=== PATIENT | male | born 1975 | race Caucasian/White ===

== ENCOUNTER 2024-08-31 17:34 | Emergency (ER) | payer MEDICAID, SELFPAY ==
[2024-08-31 17:39] VITALS: BP 174/130; PULSE 110; TEMP 36.7; O2SAT 98; BMI 33.4
--- NOTE | 2024-08-31 17:48 | CTR_ITS ---
PROCEDURE INFORMATION: Exam: CT Head Without Contrast Exam date and time: 08/31/2024 6:10 PM Age: 48 years old Clinical indication: Pain; Headache TECHNIQUE: Imaging protocol: Computed tomography of the head without contrast. Radiation optimization: All CT scans at this facility use at least one of these dose optimization techniques: automated exposure control; mA and/or kV adjustment per patient size (includes targeted exams where dose is matched to clinical indication); or iterative reconstruction. COMPARISON: No relevant prior studies available. RADIATION DOSE METRICS: Total DLP (mGy-cm): 842.78 FINDINGS: Brain: No evidence of intra-axial or extra-axial hemorrhage. No mass effect or midline shift. Burks-white differentiation is maintained. Basilar cisterns are patent. There appears to be bilateral cerebellar tonsillar ectopia, partially visualized, raising the question of Chiari 1 malformation. Cerebral ventricles: No hydrocephalus. Paranasal sinuses: The visualized paranasal sinuses are well aerated. Mastoid air cells: The visualized mastoids and middle ears are clear. Bones: Calvarium is intact. No evidence of acute fracture. Soft tissues: No gross soft tissue abnormality. CT/CT head wo con* [id number] IMPRESSION: 1. No acute intracranial abnormality. 2. Findings raising the question of Chiari 1 malformation. Consider follow-up outpatient MRI of the brain.
[2024-08-31 18:04] LABS: Basophils % 0.2 %; Eosinophils # 0.2 10^3/uL (0.0-0.8); Eosinophils % 1.8 %; Hematocrit 47.1 % (37-53); Lymphocytes # 2.7 10^3/uL (0.8-4.8); Lymphocytes % 28.3 %; Mean Corpuscular HGB Conc 33.3 g/dL (30-55); Mean Corpuscular Hemoglobin 28.6 pg (27-33); Mean Corpuscular Volume 85.9 fl (82-101); Mean Platelet Volume 8.9 fL (7.4-10.4); Monocytes # 0.8 10^3/uL (0.2-0.9); Monocytes % 8.2 %; Neutrophils # 5.89 10^3/uL (1.8-7.7); Neutrophils % 61.2 %; Nucleated Red Blood Cells % 0 %; Platelet Count 421 10^3/cmm (157-399); Red Blood Count 5.48 10^6/uL (3.85-5.65); Red Cell Distribution Width 13.4 % (12.1-15.1); White Blood Count 9.63 10^3/uL (3.29-11.43)
--- NOTE | 2024-08-31 18:13 | ED_ITS ---
HPI - Headache 2 General: Chief Complaint: Headache Stated Complaint: headache, stroke like symptoms last night. Time Seen by Provider: 08/31/24 17:45 History of Present Illness: 48-year-old man who presents emergency r oom at the advice of his primary care provider. He says yesterday he had some numbness and tingling on his left side. This went away fairly quickly. He continues to have a headache today. He had spoken with his primary and they felt like he should go be evaluated at the emergency room. Currently has no neurologic symptoms. He still has some mild frontal headache. He had no focal motor deficits. No confusion. No speech difficulty. Related Data Allergies Allergy/AdvReac Type Severity Reaction Status Date / Time No Known Allergies Allergy Verified 08/31/24 17:44 Review of Systems 2 Narrative: Constitutional symptoms: Negative except as documented in HPI. Skin symptoms: Negative except as documented in HPI. Eye symptoms: Negative except as documented in HPI. ENMT symptoms: Negative except as documented in HPI. Respiratory symptoms: Negative except as documented in HPI. Cardiovascular symptoms: Negative except as documented in HPI. Gastrointestinal symptoms: Negative except as documented in HPI. Genitourinary symptoms: Negative except as documented in HPI. Musculoskeletal symptoms: Negative except as documented in HPI. Neurologic symptoms: Negative except as documented in HPI. Psychiatric symptoms: Negative except as documented in HPI. Endocrine symptoms: Negative except as documented in HPI. Physical Exam 2 Narrative: EXAM NARRATIVE: General: Alert, no acute distress. Skin: Warm, dry. Head: Normocephalic, atraumatic. Neck: Supple, trachea midline. Eye: Extraocular movements are intact. Ears, nose, mouth and throat: mucosa moist. Cardiovascular: Regular, Normal peripheral perfusion. Respiratory: Lungs are clear to auscultation, respirations are non-labored, breath sounds are equal, Symmetrical chest wall expansion. Gastrointestinal: Soft, Nontender, Non distended Musculoskeletal: Normal ROM, no deformity. Neurological: Alert and oriented, No focal neurological deficit observed. Psychiatric: Cooperative, appropriate mood & affect. Course 2 Vital Signs: Vital signs: Vital Signs Temperature 98.1 F 08/31/24 17:39 Pulse Rate 92 08/31/24 18:31 Respiratory Rate 16 08/31/24 18:31 Blood Pressure 145/111 08/31/24 18:31 Pulse Oximetry 94 08/31/24 18:31 Oxygen Delivery Me thod Room Air 08/31/24 18:31 MDM - Headache Medical Decision Making Medical decision making: Differential diagnosis for patient with focal neurologic deficit(s) includes but not limited to and based on the above HPI, review of systems and physical exam: ischemic stroke, hemorrhagic stroke and embolic stroke secondary to atrial fibrillation), TIA, Last's palsey, metabolic encephalopathy with previous stroke. Orders placed to evaluate differential diagnosis based on the above differential, HPI and physical exam Lab Review: Laboratory results were reviewed and interpreted by myself the emergency room physician. Lab work is unremarkable CT head: No acute intracranial process. no intracranial hemorrhage, no evidence of infarct. no evidence of acute fracture.This was reviewed and interpreted by myself the ER physician. Radiologist does raise the thought of a possible Chiari I malformation. This can be further worked up as an outpatient I reviewed the patient's medical record. Reexamination: Patient remained stable. No increased work of breathing. No altered mental status. No focal motor deficits. Assessment and plan: Headache Paresthesia - Discharged home - Discussed plan with patient. Answered any questions. - Evaluation and treatment of this problem were appropriate in the emergency setting. Lab Data 08/31/24 17:54 08/31/24 17:[address] 08/31/24 17:48 IMPRESSION: 1. No acute intracranial abnormality. 2. Findings raising the question of Chiari 1 malformation. Consider follow-up outpatient MRI of the brain. Laboratory Results WBC 9.63 10^3/uL (3.29-11.43) 08/31/24 17:54 RBC 5.48 10^6/uL (3.85-5.65) 08/31/24 17:54 Hgb 15.70 g/dL (11.27-16.99) 08/31/24 17:54 Hct 47.1 % (37-53) 08/31/24 17:54 MCV 85.9 fl (82-101) 08/31/24 17:54 MCH 28.6 pg (27-33) 08/31/24 17:54 MCHC 33.3 g/dL (30-55) 08/31/24 17:54 RDW 13.4 % (12.1-15.1) 08/31/24 17:54 Plt Count 421 10^3/cmm (157-399) H 08/31/24 17:54 MPV 8.9 fL (7.4-10.4) 08/31/24 17:54 Neut % (Auto) 61.2 % 08/31/24 17:54 Lymph % (Auto) 28.3 % 08/31/24 17:54 [place] % (Auto) 8.2 % 08/31/24 17:54 Eos % (Auto) 1.8 % 08/31/24 17:54 Baso % (Auto) 0.2 % 08/31/24 17:54 Neut # (Auto) 5.89 10^3/uL (1.8-7.7) 08/31/24 17:54 Lymph # (Auto) 2.7 10^3/uL (0.8-4.8) 08/31/24 17:54 [place] # (Auto) 0.8 10^3/uL (0.2-0.9) 08/31/24 17:54 Eos # (Auto) 0.2 10^3/uL (0.0-0.8) 08/31/24 17:54 Baso # (Auto) 0.0 10^3/uL (0.0-0.1) 08/31/24 17:54 Nucleated RBC % (auto) 0 % 08/31/24 17:54 Nucleated RBCs # 0.0 /100WBC 08/31/24 17:54 Sodium 131 mmol/L (136-145) L 08/31/24 17:54 Potassium 4.6 mmol/L (3.5-5.1) 08/31/24 17:54 Chloride 92 mmol/L (98-107) L 08/31/24 17:54 Carbon Dioxide 28 mmol/L (22-29) 08/31/24 17:54 Anion Gap 15.6 (5-19) 08/31/24 17:54 BUN 11 mg/dL (6-20) 08/31/24 17:54 Creatinine 0.9 mg/dL (0.7-1.2) 08/31/24 17:54 GFR Calculation 89.3 mL/min (90-130) L 08/31/24 17:54 Glucose 96 mg/dL (65-115) 08/31/24 17:54 Calculated Osmolality 271 mOsm/kg (285-295) L 08/31/24 17:54 Calcium 10.1 mg/dL (8.5-10.5) 08/31/24 17:54 Total Bilirubin 0.4 mg/dL (0.15-1.2) 08/31/24 17:54 AST 21 U/L (0-40) 08/31/24 17:54 ALT 25 U/L (0-41) 08/31/24 17:54 Alkaline Phosphatase 111 U/L (40-130) 08/31/24 17:54 Total Protein 7.7 g/dL (6.6-8.7) 08/31/24 17:54 Albumin 4.7 g/dL (3.5-5.2) 08/31/24 17:54 Globulin 3.0 g/dL (1.3-4.6) 08/31/24 17:54 All radiology interpretation(s) finalized by discharge Discharge Plan Discharge Patient Disposition: Home Clinical Impression: Headache Condition: Stable Discharge Orders: Discharge ED (Routine); Ordered 08/31/24 Ordered By: Bella Wilson Discharge Diet: Usual diet Discharge Activity: Increase activity as tolerated Patient Instructions: Opioid Safety, Pain Management Activity Restrictions/Additional Instructions: Findings on CT suggest that you should have an outpatient MRI. This does not need to be emergent. But within the next few weeks. Thank you for choosing [facility] for your healthcare needs today. Please realize this is an emergency room and that we are providing you with a medical screening exam and this may not be complete and all inclusive of all the testing and or work up that you may need to determine your ailment or severity of your illness. You have been screened and evaluated and felt safe for discharge. Health conditions do change or evolve sometimes and as such it is important that you follow up with your Primary Doctor to be re checked, 3-5 days is a general good time frame for follow up. You are always welcome to return to the ED for re assessment if your symptoms are worsening or you have new concerns Coding Level of Care Code ED [employer] for Jyothi David
[2024-08-31 18:25] LABS: Alanine Aminotransferase 25 U/L (0-41); Albumin Level 4.7 g/dL (3.5-5.2); Alkaline Phosphatase 111 U/L (40-130); Anion Gap 15.6 (5-19); Aspartate Amino Transferase 21 U/L (0-40); Blood Urea Nitrogen 11 mg/dL (6-20); Calcium 10.1 mg/dL (8.5-10.5); Carbon Dioxide 28 mmol/L (22-29); Chloride 92 mmol/L (98-107); Creatinine Clr Calc Pharmacy 112.4389; Glomerular Filtration Rate 89.3 mL/min (90-130); Glucose 96 mg/dL (65-115); Osmolality Calculated 271 mOsm/kg (285-295); Potassium 4.6 mmol/L (3.5-5.1); Sodium 131 mmol/L (136-145); Total Bilirubin 0.4 mg/dL (0.15-1.2); Total Protein 7.7 g/dL (6.6-8.7)
[2024-08-31 18:31] VITALS: BP 145/111; PULSE 92; RESP 16; O2SAT 94
--- NOTE | 2024-08-31 18:43 | ECG_ITS ---
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 Measurements Intervals [place] Rate: 77 P: 48 IN: 159 QRS: -6 QRSD: 97 T: 42 QT: 353 QTc: 400 Interpretive Statements SINUS RHYTHM No previous ECG available for comparison Electronically Signed On 09-02-2024 10:27:16 LABORATORY EQUIPMENT INSTALLER by Magdy Paredes M.D. [email or web address]
[2024-08-31 20:40] VITALS: BP 174/113; PULSE 101; RESP 16; O2SAT 97
== END 2024-08-31 20:00 | disposition home or self-care (01) ==
PROVIDERS: Emergency Provider Emergency Medicine
DX: R51.9 Headache, unspecified (principal)
CPT/HCPCS: 70450; 80053; 85025; 93005; 99284

== ENCOUNTER 2024-12-04 15:43 | Outpatient (CLI) | payer MEDICAID, SELFPAY ==
--- NOTE | 2024-12-04 15:47 | MR_ITS ---
WS: [id number] MRI BRAIN WITHOUT CONTRAST HISTORY: HEADACHE COMPARISON: CT head 08/31/2024 TECHNIQUE: Diffusion imaging, multiplanar T1, T2 and FLAIR imaging obtained. No acute infarct or hemorrhage. There are a few scattered T2 and FLAIR signal hyperintensities these are just slightly greater involving the LEFT frontal lobe. No large infarct or area of encephalomalacia. No cerebellar infarct. No remote or acute infarcts are volume loss. Ventricles and extra-axial spaces are normal. Inferior displacement of the cerebellar tonsils consistent with a Chiari I malformation. Cerebellar tonsils extend 10.5 mm below the foramen magnum with mild pegging. Torcula is inferiorly displaced. Mild effacement of CSF spaces at the level of the foramen magnum. There is no dilatation of the fourth ventricle. Visualized upper cervical cord is negative. No syrinx identified. Dural venous sinuses and [place] demonstrate no abnormality on this unenhanced studies. Paranasal sinuses: Small cyst or mucous retention cyst in the RIGHT frontal sinus at the frontal ethmoid recess. Mastoid air cells: Normal. Calvarium and scalp: Intact. MR/MR head wo con* [id number] IMPRESSION: 1. No acute infarct or hemorrhage. 2. Chiari I malformation. Cerebellar tonsils extend 10.5 mm below the foramen magnum with mild effacement of CSF. No hydrocephalus. Recommend follow-up MRI c ervical spine to evaluate for syrinx. 3. Minimal small vessel ischemic type changes are nonspecific. Slightly greate r on the LEFT than the RIGHT.
== END 2024-12-04 15:44 | disposition home or self-care (01) ==
PROVIDERS: PCP Family Medicine; Visit Provider Family Medicine
DX: R51.9 Headache, unspecified (principal); R93.0 Abnormal findings on diagnostic imaging of skull and head, not elsewhere classified
CPT/HCPCS: 70551

== ENCOUNTER 2024-12-11 15:39 | Outpatient (CLI) | payer MEDICAID, SELFPAY ==
--- NOTE | 2024-12-11 15:40 | CT_ITS ---
WS: [id number] LDCT LUNG CANCER SCREENING HISTORY: HISTORY OF TOBACCO USE TECHNIQUE: Axial imaging performed from the apices to 1 cm below the costophrenic angles. Coronal and sagittal reformats are submitted with axial MIP series. All CT scans at [facility] use at least one of these dose optimization techniques: automated exposure control; mA and/or kV adjustment per patient size (includes targeted exams where dose is matched to clinical indication); or iterative reconstruction. DLP: 111.31 mGy.cm DIvol: Mean CTDIvol: 2.40 (mGy) COMPARISON: None available. Diagnostic quality: Satisfactory Lungs: No pulmonary nodule or mass. No endobronchial lesions. Heart: Normal size heart with no pericardial effusion.. Other findings: Mild atherosclerosis aorta. Normal size aorta and pulmonary artery. No adenopathy identified on this unenhanced exam. Small hiatal hernia. Gallbladder is incompletely included in this exam but there does appear to be a gallstone present. Normal adrenal glands. Dense calcific deposits are incompletely visualized in the LEFT upper chest. These may be associated with the shoulder joint. These may be calcified loose bodies or arthritic changes. CT/CT lung screening [id number] IMPRESSION: LUNG-RADS: 1S-Negative with Significant Findings FOLLOW UP: 12 Month: Continue annual screening with LDCT OTHER FINDINGS (S MODIFIER): Cholelithiasis suspected. Gallbladder ultrasound c an be obtained.
== END 2024-12-11 15:40 | disposition home or self-care (01) ==
PROVIDERS: PCP Family Medicine; Visit Provider Family Medicine
DX: Z12.2 Encounter for screening for malignant neoplasm of respiratory organs (principal); Z87.891 Personal history of nicotine dependence; I70.0 Atherosclerosis of aorta; K44.9 Diaphragmatic hernia without obstruction or gangrene; R93.3 Abnormal findings on diagnostic imaging of other parts of digestive tract; R93.5 Abnormal findings on diagnostic imaging of other abdominal regions, including retroperitoneum
CPT/HCPCS: 71271

== ENCOUNTER 2025-02-14 14:26 | Outpatient (CLI) | payer MEDICAID, SELFPAY ==
--- NOTE | 2025-02-14 14:29 | MR_ITS ---
WS: [id number] MRI CERVICAL SPINE NONCONTRAST HISTORY: CHIARI MALFORMATION TYPE I COMPARISON: MRI head 12/04/2024 Technique: Multiplanar, multisequence noncontrast imaging of the cervical spine. Mild straightening of the cervical lordosis. Advanced degenerative disc disease with osteophytes and disc bulging throughout the cervical spine. No signal abnormality within the cord. C5 vertebral body cyst. Chiari I malformation reidentified. Cerebellar tonsils extend 7 mm below the foramen magnum. No signal abnormality or cord syrinx is identified. C2-C3: Disc bulging and osteophytic ridging. Mild foraminal narrowing. C3-C4: Annular disc bulging with osteophytic ridging. Broad-based central disc protrusion and bilateral foraminal osteophytes, RIGHT greater than LEFT. Mild stenosis with moderate bilateral foraminal stenosis, RIGHT greater than LEFT. C4-C5: Osteophytic ridging with annular disc bulging mild facet and foraminal stenosis. C5-C6: Diffuse osteophytic ridging with annular disc bulging moderate bilateral disc osteophyte complexes causing moderate to severe foraminal stenosis, RIGHT greater than LEFT. Moderate central stenosis. C6-C7: Annular disc bulging and small osteophytes and facet arthritis. Mild LEFT foraminal stenosis. C7-T1: No stenosis. T2-3: Annular disc bulging with small LEFT foraminal disc osteophyte. Paraspinal soft tissue are normal. MR/MR cervical spin wo con* [id number] IMPRESSION: 1. Chiari I malformation. 2. No cervical cord syrinx. 3. Multilevel degenerative cervical spondylosis with stenoses at multiple leve ls. 4. C5-6: Moderate central with moderate to severe bilateral foraminal stenosis , RIGHT greater than LEFT due to disc osteophyte disease. 5. C3-4: Broad-based disc protrusion and bilateral foraminal osteophytes. Mild central stenosis with moderate bilateral foraminal stenosis, RIGHT greater jodi n LEFT. 6. C6-7: Mild LEFT foraminal stenosis. 7. No signal abnormality within the cord.
== END 2025-02-14 14:27 | disposition home or self-care (01) ==
LOC: RAD 14:28
PROVIDERS: PCP Family Medicine; Visit Provider Family Medicine
DX: G93.5 Compression of brain (principal); M47.892 Other spondylosis, cervical region; M48.02 Spinal stenosis, cervical region; M25.78 Osteophyte, vertebrae; M50.21 Other cervical disc displacement, high cervical region; R93.7 Abnormal findings on diagnostic imaging of other parts of musculoskeletal system; M85.68 Other cyst of bone, other site; R93.89 Abnormal findings on diagnostic imaging of other specified body structures; M50.31 Other cervical disc degeneration, high cervical region; M50.221 Other cervical disc displacement at C4-C5 level; M50.322 Other cervical disc degeneration at C5-C6 level; M50.323 Other cervical disc degeneration at C6-C7 level; M51.34 Other intervertebral disc degeneration, thoracic region
CPT/HCPCS: 72141